=== PATIENT | female | born 1950 | race Caucasian/White ===

== ENCOUNTER 2023-02-07 07:29 | Outpatient (CLI) | payer MEDICARE, BC | END 2023-02-07 07:30 | disposition home or self-care (01) | LOC: ULT 07:29 | PROVIDERS: ATTEND Internal Medicine Gastroenterology | DX: R79.89 Other specified abnormal findings of blood chemistry (principal); K59.04 Chronic idiopathic constipation; D50.9 Iron deficiency anemia, unspecified | CPT/HCPCS: 76705 ==

== ENCOUNTER 2024-05-06 07:45 | Outpatient (CLI) | payer MEDICARE | END 2024-05-06 07:46 | disposition home or self-care (01) | LOC: BICULT 07:45 | PROVIDERS: ATTEND Internal Medicine Gastroenterology | DX: R10.13 Epigastric pain (principal); K59.04 Chronic idiopathic constipation; K76.0 Fatty (change of) liver, not elsewhere classified | CPT/HCPCS: 76705 ==